=== PATIENT | female | born 1960 | race Caucasian/White ===

== ENCOUNTER 2018-08-23 20:04 | Emergency (ER) | payer MEDICAID ==
[~2018-08-23] VITALS: Ht 167.6 cm; Wt 69.9 kg
[2018-08-23] MEDS ORDERED: SODIUM CHLORIDE 0.9% 1,000 ML IV ONE ×2 (20:13)
[2018-08-23] MEDS ORDERED: TAMSULOSIN HYDROCHLORIDE 0.4 MG CAP PO ONE (20:15)
[2018-08-23] MEDS ORDERED: KETOROLAC TROMETH 30 MG/ML 1ML VIAL IV ONE (20:15)
[2018-08-23 21:18] LABS: Urine Bacteria NONE SEEN /hpf (None Seen); Urine Blood TRACE /uL (Negative); Urine Mucus FEW (None Seen); Urine Specific Gravity 1.008 (1.001-1.035); Urine WBC <1 /hpf (0 - 5)
[2018-08-23 21:38] LABS: Basophils # (auto) 0.1 uL; Basophils % (auto) 1.3 % (0.0-2.0); Eosinophils # (auto) 0.2 uL; Eosinophils % (auto) 2.8 % (0.0-7.0); Hematocrit 45.8 % (36.0-46.0); Hemoglobin 15.3 g/dL (12.2-16.2); Lymphocytes # (auto) 2.4 uL; Lymphocytes % (auto) 33.6 % (10.0-50.0); Mean Corpuscular Hemoglobin 28.8 pg (28.0-32.0); Mean Corpuscular Hgb Conc. 33.3 g/dL (32.0-36.0); Mean Corpuscular Volume 86.2 fL (80.0-100.0); Monocytes # (auto) 0.6 uL; Monocytes % (auto) 8.2 % (0.0-12.0); Neutrophils # (auto) 3.9 uL; Neutrophils % (auto) 54.1 % (37.0-80.0); Platelet Count (auto) 282 10^3/uL (140-450); Red Blood Cells 5.31 10^6/uL (4.0-5.20); Red Cell Distribution Width 13.4 % (11.8-14.3); White Blood Cell 7.2 10^3/uL (4.4-10.8)
[2018-08-23 21:51] LABS: Albumin 3.9 g/dL (3.4-5.0); BUN/Creatinine Ratio 18.1; Calcium 9.1 mg/dL (8.5-10.1); Potassium 4.1 mmol/L (3.5-5.1)
[2018-08-23 21:53] LABS: Bilirubin, Total 0.4 mg/dL (0.2-1.0); Total Protein 7.5 g/dL (6.4-8.2)
[2018-08-23 22:27] VITALS: BP 135/49
== END 2018-08-23 23:42 | disposition home or self-care (01) ==
LOC: EDBD 20:04 → ER 20:10
DX: N20.0 Calculus of kidney (principal); F17.210 Nicotine dependence, cigarettes, uncomplicated; F12.90 Cannabis use, unspecified, uncomplicated; Z90.710 Acquired absence of both cervix and uterus
CPT/HCPCS: 36415; 74176; 80053; 81001; 85025; 96374; 99284; J1885; J7030

== ENCOUNTER 2020-03-30 08:05 | Emergency (ER) | payer MEDICAID ==
[~2020-03-30] VITALS: Ht 160 cm; Wt 64.9 kg
[2020-03-30 08:30] VITALS: BP 132/90
== END 2020-03-30 09:11 | disposition home or self-care (01) ==
LOC: ER 08:05
DX: R04.0 Epistaxis (principal); F17.210 Nicotine dependence, cigarettes, uncomplicated; F12.10 Cannabis abuse, uncomplicated; Z90.710 Acquired absence of both cervix and uterus; Z88.6 Allergy status to analgesic agent

== ENCOUNTER 2022-04-02 13:44 | Emergency (ER) | payer MEDICAID ==
[~2022-04-02] VITALS: Ht 165.1 cm; Wt 68.0 kg
[2022-04-02 13:56] VITALS: BP 126/86
[2022-04-02] MEDS ORDERED: SODIUM CHLORIDE 0.9% 1,000 ML IVB ONE (16:45)
[2022-04-02 17:15] LABS: Basophils # (auto) 0 10 ^3/uL (0-0.2); Basophils % (auto) 0.6 % (0.0-2.0); Eosinophils # (auto) 0 10 ^3/uL (0-0.8); Eosinophils % (auto) 0.1 % (0.0-7.0); Hematocrit 45.2 % (36.0-46.0); Hemoglobin 14.8 g/dL (12.2-16.2); Lymphocytes % (auto) 12.6 % (10.0-50.0); Mean Corpuscular Hemoglobin 28.4 pg (28.0-32.0); Mean Corpuscular Hgb Conc. 32.9 g/dL (32.0-36.0); Mean Corpuscular Volume 86.2 fL (80.0-100.0); Monocytes # (auto) 0.3 10 ^3/uL (0-1.3); Monocytes % (auto) 3.3 % (0.0-12.0); Neutrophils # (auto) 6.4 10 ^3/uL (1.6-8.6); Neutrophils % (auto) 83.4 % (37.0-80.0); Red Blood Cells 5.24 10^6/uL (4.0-5.20); Red Cell Distribution Width 13.7 % (11.8-14.3); White Blood Cell 7.7 10^3/uL (4.4-10.8)
[2022-04-02 17:41] LABS: Albumin 3.7 g/dL (3.4-5.0); Calcium 9.6 mg/dL (8.5-10.1); Magnesium 2.4 mg/dL (1.6-2.6); Potassium 4.2 mmol/L (3.5-5.1)
[2022-04-02 17:44] LABS: BUN/Creatinine Ratio 22.3; Bilirubin, Total 0.6 mg/dL (0.2-1.0); Total Protein 8.1 g/dL (6.4-8.2)
== END 2022-04-03 01:21 | disposition left against medical advice (07) ==
LOC: ER 13:44 → EDBD 13:44 → ER 04-03 01:21
DX: R53.1 Weakness (principal); E86.0 Dehydration; N39.0 Urinary tract infection, site not specified; J44.9 Chronic obstructive pulmonary disease, unspecified; F17.210 Nicotine dependence, cigarettes, uncomplicated; F12.90 Cannabis use, unspecified, uncomplicated; Z88.2 Allergy status to sulfonamides; Z88.5 Allergy status to narcotic agent; Z87.442 Personal history of urinary calculi; Z90.710 Acquired absence of both cervix and uterus; Z98.890 Other specified postprocedural states
CPT/HCPCS: 36415; 80053; 83690; 83735; 85025

== ENCOUNTER → 2022-04-26 | Outpatient (CLI) | payer MEDICAID | END | disposition home or self-care (01) | LOC: LAB 09:46 | PROVIDERS: ATTEND Internal Medicine Pulmonary Disease | DX: Z01.812 Encounter for preprocedural laboratory examination (principal); Z20.822 Contact with and (suspected) exposure to COVID-19 | CPT/HCPCS: 36415; 87426 ==

== ENCOUNTER → 2022-05-04 | Outpatient (CLI) | payer MEDICAID | END | disposition home or self-care (01) | LOC: LAB 12:49 | PROVIDERS: ATTEND Internal Medicine Pulmonary Disease | DX: Z01.812 Encounter for preprocedural laboratory examination (principal); Z20.822 Contact with and (suspected) exposure to COVID-19 | CPT/HCPCS: 36415; 87426 ==

== ENCOUNTER → 2022-05-05 | Outpatient (CLI) | payer MEDICAID ==
[~2022-05-05] MED LIST: ALBUTEROL MEDNEB 2.5 mg/3ml NEB ONE
== END | disposition home or self-care (01) ==
LOC: RT 10:36
PROVIDERS: ATTEND Internal Medicine Pulmonary Disease
DX: J44.9 Chronic obstructive pulmonary disease, unspecified (principal)
CPT/HCPCS: 94060; 94727; 94729

== ENCOUNTER → 2022-09-07 | Outpatient (CLI) | payer MEDICAID ==
[2022-09-07 13:58] LABS: Basophils # (auto) 0.1 10 ^3/uL (0-0.2); Basophils % (auto) 1.1 % (0.0-2.0); Eosinophils # (auto) 0.3 10 ^3/uL (0-0.8); Eosinophils % (auto) 3.1 % (0.0-7.0); Hematocrit 45.3 % (36.0-46.0); Hemoglobin 15.2 g/dL (12.2-16.2); Lymphocytes # (auto) 2.4 10 ^3/uL (0.4-5.4); Mean Corpuscular Hgb Conc. 33.6 g/dL (32.0-36.0); Mean Corpuscular Volume 86.1 fL (80.0-100.0); Monocytes # (auto) 0.8 10 ^3/uL (0-1.3); Monocytes % (auto) 8.1 % (0.0-12.0); Neutrophils # (auto) 6.6 10 ^3/uL (1.6-8.6); Neutrophils % (auto) 64.7 % (37.0-80.0); Nucleated Red Blood Cells % 0.2 %; Red Blood Cells 5.26 10^6/uL (4.0-5.20); Red Cell Distribution Width 13.2 % (11.8-14.3); White Blood Cell 10.3 10^3/uL (4.4-10.8)
== END | disposition home or self-care (01) ==
LOC: LAB 13:37
PROVIDERS: ATTEND Internal Medicine Pulmonary Disease
DX: R91.8 Other nonspecific abnormal finding of lung field (principal); J44.9 Chronic obstructive pulmonary disease, unspecified
CPT/HCPCS: 36415; 85025

== ENCOUNTER 2022-10-05 20:15 | Inpatient (IN) | payer MEDICAID ==
[~2022-10-05] VITALS: Ht 165.1 cm; Wt 70.4 kg
[2022-10-05] MEDS ORDERED: ALBUTEROL SULF 2.5 MG/0.5ML(0.5%) NEB SOLN NEB ONE ×2 (20:30→20:50)
[2022-10-05] MEDS ORDERED: methylPREDNISolone SOD SUCC 40 MG/ML VL IV ONE (20:30)
[2022-10-05] MEDS ORDERED: IPRATROPIUM BROM 0.5 MG/2.5ML INH SOL NEB ONE (20:30)
[2022-10-05] MEDS ORDERED: ALBUTEROL SULF 2.5 MG/0.5ML(0.5%) NEB SOLN ONE (21:09)
[2022-10-05] MEDS ORDERED: MAGNESIUM SULFATE 1GM/100ML 100 ML IV ONE (21:15)
[2022-10-05 21:39] LABS: Basophils # (auto) 0.1 10 ^3/uL (0-0.2); Basophils % (auto) 0.9 % (0.0-2.0); Eosinophils # (auto) 0.5 10 ^3/uL (0-0.8); Eosinophils % (auto) 6.4 % (0.0-7.0); Hematocrit 40.3 % (36.0-46.0); Hemoglobin 13.6 g/dL (12.2-16.2); Lymphocytes # (auto) 2.4 10 ^3/uL (0.4-5.4); Lymphocytes % (auto) 28.1 % (10.0-50.0); Mean Corpuscular Hemoglobin 29.2 pg (28.0-32.0); Mean Corpuscular Hgb Conc. 33.8 g/dL (32.0-36.0); Mean Corpuscular Volume 86.2 fL (80.0-100.0); Monocytes # (auto) 0.6 10 ^3/uL (0-1.3); Monocytes % (auto) 7.2 % (0.0-12.0); Neutrophils # (auto) 4.8 10 ^3/uL (1.6-8.6); Neutrophils % (auto) 57.4 % (37.0-80.0); Nucleated Red Blood Cells % 0.1 %; Red Blood Cells 4.68 10^6/uL (4.0-5.20); Red Cell Distribution Width 13.1 % (11.8-14.3); White Blood Cell 8.4 10^3/uL (4.4-10.8)
[2022-10-05 21:55] LABS: Albumin 3.8 g/dL (3.4-5.0); Magnesium 2.4 mg/dL (1.6-2.6); Potassium 3.5 mmol/L (3.5-5.1)
[2022-10-05 21:58] LABS: BUN/Creatinine Ratio 17.5 (10.0-20.0); Bilirubin, Total 0.3 mg/dL (0.2-1.0); Total Protein 7.4 g/dL (6.4-8.2)
[2022-10-05 22:00] LABS: INR 0.92 (0.9-1.15); Partial Thromboplastin Time 27.8 sec (24.6-33.4)
[2022-10-05] MEDS ORDERED: NITROGLYCERIN 0.4 MG SL TAB SL PRN (22:15)
[2022-10-05] MEDS ORDERED: ACETAMINOPHEN 325 MG TAB PO PRN (22:15)
[2022-10-05] MEDS ORDERED: ONDANSETRON HCL 4 MG/2 ML VIAL IV PRN (22:15)
[2022-10-05] MEDS ORDERED: MORPHINE SULFATE INJ 2 MG/ml SYRG IV PRN (22:15)
[2022-10-05 22:23] VITALS: BP 151/100
[2022-10-06] MEDS: TEMAZEPAM 15 MG CAP PO PRN ×2 (02:33→22:43)
[2022-10-06 06:18] LABS: BUN/Creatinine Ratio 14.8 (10.0-20.0); Calcium 8.9 mg/dL (8.5-10.1); Potassium 3.6 mmol/L (3.5-5.1)
[2022-10-06] MEDS: ALBUTEROL SULF 2.5 MG/0.5ML(0.5%) NEB SOLN NEB PRN ×3 (09:43→19:05)
[2022-10-06] MEDS: IPRATROPIUM BROM 0.5 MG/2.5ML INH SOL NEB PRN ×3 (09:43→19:05)
[2022-10-06] MEDS: ENOXAPARIN SOD 40 MG/0.4 ML SYRINGE SC SCH (10:00)
[2022-10-06] MEDS: PANTOPRAZOLE 40 MG TAB PO SCH (10:00)
[2022-10-06 10:15] VITALS: BP 126/84
[2022-10-06] MEDS: methylPREDNISolone SOD SUCC 40 MG/ML VL IV SCH ×2 (10:30→22:43)
[2022-10-06 22:00] VITALS: BP 136/92
[2022-10-07] MEDS: IPRATROPIUM BROM 0.5 MG/2.5ML INH SOL NEB PRN ×3 (01:18→12:47)
[2022-10-07] MEDS: ALBUTEROL SULF 2.5 MG/0.5ML(0.5%) NEB SOLN NEB PRN ×3 (01:18→12:47)
[2022-10-07 05:00] VITALS: BP 132/89
[2022-10-07 08:56] VITALS: BP 132/91
[2022-10-07] MEDS ORDERED: IOHEXOL 350 MG/ML 100ML IJ ONE (09:03)
[2022-10-07] MEDS: methylPREDNISolone SOD SUCC 40 MG/ML VL IV SCH (09:08)
[2022-10-07] MEDS: PANTOPRAZOLE 40 MG TAB PO SCH (09:08)
[2022-10-07] MEDS: ENOXAPARIN SOD 40 MG/0.4 ML SYRINGE SC SCH (09:08)
[2022-10-07 13:00] VITALS: BP 130/79
[2022-10-07 16:19] VITALS: BP 130/79
== END 2022-10-07 16:43 | disposition home or self-care (01) | DRG 140 ==
LOC: EDBD 20:15 → ER 20:22 → TELE 22:05 → TELE-CENTR 10-06 10:09
PROVIDERS: ADMIT Nurse Practitioner; ATTEND Internal Medicine
DX: J44.1 Chronic obstructive pulmonary disease with (acute) exacerbation (principal); J96.21 Acute and chronic respiratory failure with hypoxia; F17.210 Nicotine dependence, cigarettes, uncomplicated; R79.89 Other specified abnormal findings of blood chemistry; Z88.5 Allergy status to narcotic agent; Z87.442 Personal history of urinary calculi; Z90.710 Acquired absence of both cervix and uterus; Z88.2 Allergy status to sulfonamides
CPT/HCPCS: 36415; 71045; 71275; 80048; 80053; 83735; 83880; 84484; 85025; 85379; 85610; 85730; 93005; 93970; 94640; 94644; 96365; G0378

== ENCOUNTER 2022-10-10 10:18 | Emergency (ER) | payer MEDICAID ==
[~2022-10-10] VITALS: Ht 165.1 cm; Wt 65.2 kg
[2022-10-10 10:22] VITALS: BP 128/93
[2022-10-10 10:55] LABS: Basophils # (auto) 0 10 ^3/uL (0-0.2); Basophils % (auto) 0.3 % (0.0-2.0); Eosinophils # (auto) 0.7 10 ^3/uL (0-0.8); Eosinophils % (auto) 5.9 % (0.0-7.0); Hematocrit 50.2 % (36.0-46.0); Hemoglobin 16.6 g/dL (12.2-16.2); Lymphocytes # (auto) 2.9 10 ^3/uL (0.4-5.4); Lymphocytes % (auto) 26.1 % (10.0-50.0); Mean Corpuscular Hemoglobin 28.6 pg (28.0-32.0); Mean Corpuscular Volume 86.6 fL (80.0-100.0); Monocytes # (auto) 0.9 10 ^3/uL (0-1.3); Monocytes % (auto) 7.8 % (0.0-12.0); Neutrophils # (auto) 6.7 10 ^3/uL (1.6-8.6); Neutrophils % (auto) 59.9 % (37.0-80.0); Nucleated Red Blood Cells % 0.3 %; Red Blood Cells 5.79 10^6/uL (4.0-5.20); Red Cell Distribution Width 13.4 % (11.8-14.3); White Blood Cell 11.1 10^3/uL (4.4-10.8)
[2022-10-10] MEDS ORDERED: LEVO500T91 PO (12:19)
[2022-10-10] MEDS ORDERED: IOHEXOL 350 MG/ML 100ML IJ ONE (12:24)
[2022-10-10] MEDS ORDERED: IPRATROPIUM BROM 0.5 MG/2.5ML INH SOL NEB ONE (12:30)
[2022-10-10] MEDS ORDERED: methylPREDNISolone SOD SUCC 40 MG/ML VL IM ONE (12:30)
[2022-10-10] MEDS ORDERED: cefTRIAXone SOD 1,000 MG VL IM ONE (12:30)
[2022-10-10] MEDS ORDERED: ALBUTEROL SULF 2.5 MG/0.5ML(0.5%) NEB SOLN NEB ONE (12:30)
[2022-10-10 12:41] LABS: Potassium 3.9 mmol/L (3.5-5.1)
[2022-10-10 12:47] LABS: BUN/Creatinine Ratio 17.4 (10.0-20.0); Bilirubin, Total 0.4 mg/dL (0.2-1.0); Calcium 8.9 mg/dL (8.5-10.1); Total Protein 7.5 g/dL (6.4-8.2)
== END 2022-10-10 14:47 | disposition left against medical advice (07) ==
LOC: ER 10:18
DX: J44.1 Chronic obstructive pulmonary disease with (acute) exacerbation (principal); E86.0 Dehydration; F17.210 Nicotine dependence, cigarettes, uncomplicated; F15.90 Other stimulant use, unspecified, uncomplicated; Z87.442 Personal history of urinary calculi; Z90.710 Acquired absence of both cervix and uterus
CPT/HCPCS: 36415; 71045; 80053; 84484; 85025; 93005; 99285; Q9967

== ENCOUNTER 2025-01-05 05:41 | Emergency (ER) | payer OTHER, MEDICAID ==
[~2025-01-05] VITALS: Ht 152.4 cm; Wt 62.4 kg
[~2025-01-05 05:41] MED LIST changes: +ALBU1TAB2 PO; -ALBUTEROL MEDNEB 2.5 mg/3ml NEB ONE; +AZIT500T66 PO; +FLUT1INH28 IN; +LEVO500T91 PO; +METH4PAK PO
[2025-01-05 05:43] VITALS: TEMP 97.7
--- NOTE | 2025-01-05 07:29 | ED.PDOC ---
SOB-HPI HPI Comments A 64 YEAR OLD FEMALE PRESENTS TO THE ED WITH COMPLAINT OF COUGH AND CHEST TIGHTNESS. PATIENT STATES SHE HAS A HISTORY OF COPD AND HAS BEEN EXPERIENCING A COUGH AND CHEST TIGHTNESS THAT COMES AND GOES FOR THE PAST 2 WEEKS. PATIENT REPORTS SHE HAS AN INHALER AND A NEBULIZER MACHINE, BUT NOTES SHE HAS BEEN HOMELESS FOR THE PAST 2 WEEKS AND HAS NOT BEEN ABLE TO USE HER NEBULIZER MACHINE A RESULT. PATIENT DENIES FEVER, CHILLS, SHORTNESS OF BREATH, CHEST PAIN, ABDOMINAL PAIN, NAUSEA, VOMITING, HEADACHE, OR OTHER COMPLAINTS. NO OTHER SYMPTOMS OR MODIFYING FACTORS AT THIS TIME. PATIENT IS ALERT, ORIENTED X 4, AND HAS STEADY GAIT. Chief Complaint: Shortness of Breath Time Seen by MD: 06:27 Reviewed notes: Nurses Notes, Medications, Allergies Information Source: Patient Mode of Arrival: Ambulatory Severity: Moderate Timing: Weeks Duration: Intermittent Context: Spontaneous Onset PE Risk Factors: None History of: COPD Prehospital treatment: None Modifying Factors: Nothing Associated Signs and Symptoms: Wheeze, Cough If cough with SOB: Non-Productive Past Medical History PAST MEDICAL HISTORY: COPD, Kidney Stones Surgical History: BTL, Hysterectomy SENIOR SALES ASSISTANT History: No Pertinent SENIOR SALES ASSISTANT History Family History Family History: Reviewed,noncontributory to illness, Family hx of Cancer Social History Smoker: Quit Less Than 1 Year Alcohol: Denies ETOH Use Drugs: Marijuana Lives In: Home Constitutional: denies: chills, diaphoresis, fatigue, fever, malaise, sweats, weakness, others EENTM: denies: blurred vision, double vision, ear bleeding, ear discharge, ear drainage, ear pain, ear ringing, eye pain, eye redness, hearing loss, mouth pain, mouth swelling, nasal discharge, nose bleeding, nose congestion, nose pain, photophobia, tearing, throat pain, throat swelling, voice changes, others Respiratory: reports: shortness of breath, wheezing, others (CHEST TIGHTNESS); denies: cough, hemoptysis, orthopnea, SOB at rest, SOB with excertion, stridor Cardiovascular: denies: chest pain, dizzy spells, diaphoresis, Dyspnea on exertion, edema, irregular heart beat, left arm pain, lightheadedness, palpitations, PND, syncope, others Gastrointestinal: denies: abdomen distended, abdominal pain, blood streaked bowels, constipated, diarrhea, dysphagia, difficulty swallowing, hematemesis, melena, nausea, poor appetite, poor fluid intake, rectal bleeding, rectal pain, vomiting, others Genitourinary: denies: abnormal vagina bleeding, burning, dyspareunia, dysuria, flank pain, frequency, hematuria, incontinence, pain, , vagina discharge, urgency, others Neurological: denies: dizziness, fainting, headache, left sided numbness, left sided weakness, numbness, paresthesia, pre-existing deficit, right sided numbness, right sided weakness, seizure, speech problems, tingling, tremors, wea kness, others Musculoskeletal: denies: back pain, gout, joint pain, joint swelling, muscle pain, muscle stiffness, neck pain, others Integumetry: denies: bruises, change in color, change in hair/nails, dryness, l aceration, lesions, lumps, rash, wounds, others Allergic/Immunocompromised: denies: Difficulty Healing, Frequent Infections, Hives, Itching, others Hematologic/Lymphatic: denies: anemia, blood clots, easy bleeding, easy bruising, swollen glands, others Endocrine: denies: excessive hunger, excessive sweating, excessive thirst, excessive urination, flushing, intolerance to cold, intolerance to heat, unexplained weight gain, unexplained weight loss, others Psychiatric: denies: anxiety, bipolar disorder, depression, hopeless, panic disorder, schizophrenia, sleepless, suicidal, others All Other Systems: Reviewed and Negative Physical Exam General Appearance: No Apparent Distress, Normal HEENT: Normal ENT Inspection, PERRL/EOMI, Pharynx Normal, TMs Normal Neck: Full Range of Motion, Non-Tender, Normal, Normal Inspection Respiratory: Chest Non-Tender, Expiration, No Accessory Muscle Use, No Respiratory Distress, Rhonchi, Wheezing (MILD ) Cardiovascular: No Edema, No JVD, No Murmur, No Gallop, Normal Peripheral Pulses, Regular Rate/Rhythm Breast Exam: Deferred Gastrointestinal: No Organomegaly, Non Tender, No Pulsatile Mass, Normal Bowel Sounds, Soft Genitalia: Deferred Pelvic: Deferred Rectal: Deferred Extremities: No calf tenderness, Normal capillary refill, Normal inspection, Normal range of motion, Non-tender, No pedal edema Musculoskeletal : Apperance: Normal Neurologic: Alert, communications project manager II-XII nml as Tested, No Motor Deficits, Normal Affect, Normal Mood, No Sensory Deficits Cerebellar Function: Normal Reflexes: Normal Skin: Dry, Normal Color, Warm Peripheral Pulses: 2+ carotid (R), 2+ carotid (L) Lymphatic: No Adenopathy Was a procedure done? Was a procedure done?: No Differential Dx Differential Diagnosis: Bronchitis, COPD, Pneumonia, Sinusitis, Allergic Rhinitis, Otitis Media, Pharyngitis, URI X-Ray, Labs, Meds, VS Vital Signs Date Time Temp Pulse Resp B/P (MAP) Pulse Ox O2 Delivery O2 Flow Rate FiO2 01/05/25 08:01 18 96 Room Air* 0 21 01/05/25 05:43 97.7 97 18 138/81 97.7 Current Medications Medications (Trade) Dose Ordered Sig/Lucius Route Start Time Stop Time Status Last Admin Albuterol (Ventolin Medneb) 2.5 mg ONCE ONCE NEB 01/05/25 07:30 01/05/25 07:31 DC 01/05/25 08:01 Ipratropium Mears (Atrovent Medneb) 0.5 mg ONCE ONCE NEB 01/05/25 07:30 01/05/25 07:31 DC 01/05/25 08:01 Methylprednisolone Sodium Succinate (Solu Medrol) 125 mg ONCE ONCE IM 01/05/25 07:30 01/05/25 07:31 DC 01/05/25 07:43 CHEST RADIOGRAPH Indication: SOB, HX OF COPD Technique: Single frontal view of the chest was obtained COMPARISON: XY CHEST PORTABLE on DOS: 10/26/22, XY CHEST PORTABLE on DOS: 10/10/22, CT CT ANGIO CHEST CONTRAST on DOS: 10/07/22, XY CHEST PORTABLE on DOS: 10/05/22 FINDINGS: Lines and Tubes: None Lungs: Mild congestion Pleura: No effusion. No pneumothorax. Cardiomediastinal contours: Unremarkable Bones: Unremarkable IMPRESSION: Increased interstital prominence. This may represent pulmonary vascular congestion and/or viral pneumonia. Clinical correlation advised. ATED BY: AV BARKER MD DICTATED DATE/TIME: 01/05/25745 SIGNED BY: AV BARKER MD SIGNED DATE/TIME: 01/05/25745 CC: X-Ray, Labs, Meds, VS Comment EXTERNAL MEDICAL RECORDS REVIEWED: [NONE] INDEPENDENT HISTORIANS: [NONE] SOCIAL DETERMINANTS OF HEALTH: [NONE] LABS ORDERED: NONE REVIEWED AND INTERPRETED RESULTS: NONE IMAGING ORDERED: XR CHEST TREATMENTS ORDERED: DUONEB 3 MG INHL, SOLU-MEDROL 125MG IM PROCEDURES PERFORMED: NONE CRITICAL CARE TIME: NONE I HAVE DISCUSSED THE PATIENT WITH THE ATTENDING PHYSICIAN DR. MEI AND HE AGREES WITH THE PATIENT'S PLAN OF CARE AND DISPOSITION. BASED ON HISTORY OF PRESENT ILLNESS, AND PHYSICAL EXAM, PATIENT WILL BE DISCHARGED HOME. DISCUSSED PLAN FOR DISCHARGE HOME WITH RX [LEVAQUIN 500 MG AND PREDNISONE]. MEDICATION WARNINGS GIVEN. SHARED DECISION MAKING: PATIENT INSTRUCTED TO FOLLOW UP WITH PRIMARY CARE PROVIDER IN 1-2 DAYS FOR RE-EVALUATION OF SYMPTOMS. PATIENT VERBALIZES UNDERSTANDING TO RETURN TO ED FOR NEW OR WORSENING SYMPTOMS OR IF FOLLOW UP WITH PCP CANNOT BE OBTAINED. PATIENT FEELS COMFORTABLE GOING HOME AT THIS TIME. ALL QUESTIONS ADDRESSED AT TIME OF DISCHARGE. Images Reviewed?: Images reviewed and evaluated by me Time of 1ST Reevaluation: 08:30 Reevaluation 1ST: Improved Patient Education/Counseling: Diagnosis, Treatment, Need For Follow Up Family Education/Counseling: Diagnosis, Treatment, Need For Follow Up Medical Screening: No EMC Exist At This Time SEPSIS Sepsis Screen Date sepsis recognized/suspect: Jan 05, 2025 Time Sepsis recognized/suspect: 0551 Recent Procedure: No On Antibiotic Therapy: No Respiratory Rate >20: No Heart Rate >90: No Temp<36 C (96.8 F) or >38.3 C: No SBP <90 or MAP <65 mmHG: No New Acute Mental Status Change: No Is the patient on CPAP, BIPAP,: No Physician Orders Chest Portable (01/05/25 06:29) Vital Signs Date Time Temp Pulse Resp B/P (MAP) Pulse Ox O2 Delivery O2 Flow Rate FiO2 01/05/25 08:01 18 96 Room Air* 0 21 01/05/25 05:43 97.7 97 18 138/81 97.7 Medications Medications Dose Ordered Sig/Lucius Route Start Time Stop Time Status Last Admin Dose Admin Albuterol 2.5 mg ONCE ONCE NEB 01/05/25 07:30 01/05/25 07:31 DC 01/05/25 08:01 Ipratropium Mears 0.5 mg ONCE ONCE NEB 01/05/25 07:30 01/05/25 07:31 DC 01/05/25 08:01 Methylprednisolone Sodium Succinate 125 mg ONCE ONCE IM 01/05/25 07:30 01/05/25 07:31 DC 01/05/25 07:43 Departure 1 Departure Time of Disposition: 08:30 Impression: Primary Impression: Acute bronchitis with COPD Disposition: 01 HOME / SELF CARE / HOMELESS Condition: Stable Additional Instructions: FOLLOW-UP WITH PCP IN 1 TO 2 DAYS. TAKE MEDICATIONS PRESCRIBED. RETURN TO ED FOR ANY NEW OR WORSENING SYMPTOMS. e-Prescriptions Methylprednisolone (Medrol Dosepak) 4 Mg Doug 4 MG PO UD, #21 TAB UAD Prov: JACOB FLORES 01/05/25 Levofloxacin Hemihydrate (LEVOFLOXACIN) 500 Mg Tab 500 MG PO DAILY for 10 Days, #10 MG Prov: JACOB FLORES 01/05/25 Discharged With: Self Critical Care Note Critical Care Time?: No Stability Stability form required: No Heart Score Heart Score: Heart Score Response (Comments) Value History N/A 0 EKG N/A 0 Age N/A 0 Risk Factors N/A 0 Troponin N/A 0 Total 0 I personally scribed for JACOB FLORES ([email or web address]) on 01/05/25 at 07:29. Electronically submitted by Marvin Bergman ([employer]). I personally scribed for JACOB FLORES ([email or web address]) on 01/05/25 at 07:57. Electronically submitted by Marvin Bergman ([employer]). I personally scribed for JACOB FLORES ([email or web address]) on 01/05/25 at 07:59. Electronically submitted by Marvin Bergman ([employer]). JACOB FLORES Jan 05, 2025 07:29
[2025-01-05] MEDS: methylPREDNISolone SOD SUCC 125 MG/2 ML VL IM ONE (07:43)
--- NOTE | 2025-01-05 07:48 | DVH ---
CHEST RADIOGRAPH Indication: SOB, HX OF COPD Technique: Single frontal view of the chest was obtained COMPARISON: XY CHEST PORTABLE on DOS: 10/26/22, XY CHEST PORTABLE on DOS: 10/10/22, CT CT ANGIO CHEST C ONTRAST on DOS: 10/07/22, XY CHEST PORTABLE on DOS: 10/05/22 FINDINGS: Lines and Tubes: None Lungs: Mild congestion Pleura: No effusion. No pneumothorax. Cardiomediastinal contours: Unremarkable Bones: Unremarkable IMPRESSION: Increased interstital prominence. This may represent pulmonary vascular congestion and/or viral pneum onia. Clinical correlation advised.
[2025-01-05] MEDS: ALBUTEROL SULF 2.5 MG/0.5ML(0.5%) NEB SOLN NEB ONE (08:01)
[2025-01-05] MEDS: IPRATROPIUM BROM 0.5 MG/2.5ML INH SOL NEB ONE (08:01)
[2025-01-05 08:11] VITALS: BP 138/81; PULSE 97; RESP 18; O2SAT 96
[2025-01-05] MEDS ORDERED: LEVO500T91 PO (08:11)
[2025-01-05] MEDS ORDERED: METH4PAK PO (08:11)
== END 2025-01-05 08:14 | disposition home or self-care (01) ==
LOC: ER 05:41
DX: J44.0 Chronic obstructive pulmonary disease with (acute) lower respiratory infection (principal); J20.9 Acute bronchitis, unspecified; Z90.710 Acquired absence of both cervix and uterus
CPT/HCPCS: 71045; 94640; 96372; 99283; J2919

== ENCOUNTER 2025-04-13 04:21 | Inpatient (IN) | payer OTHER, MEDICAID ==
[~2025-04-13] VITALS: Ht 167.6 cm; Wt 64.0 kg
--- NOTE | 2025-04-13 05:01 | ED.PDOC ---
GI ASSESSMENT HPI Comments 65-year-old female who came to ER for abdominal pain. Patient states about 12 midnight, she started having diffuse cramping abdominal pain, associated multiple bouts of nausea, vomiting and diarrhea. States she feels very weak and dehydrated. Chief Complaint: Abdominal Pain Time Seen by MD: 05:01 Reviewed Notes: Nurses Notes, Glue Machine Operator Notes Allergies: Coded Allergies: Codeine (Verified Allergy, Unknown, 09/14/18) Ketorolac Tromethamine (Verified Allergy, Unknown, 10/10/22) Morphine (Verified Allergy, Unknown, 09/14/18) Sulfa Antibiotics (Verified Allergy, Unknown, 04/02/22) Home Meds Active Scripts Methylprednisolone (Medrol Dosepak) 4 Mg Doug, 4 MG PO UD, #21 TAB UAD Prov:JACOB FLORES 01/05/25 Levofloxacin Hemihydrate (LEVOFLOXACIN) 500 Mg Tab, 500 MG PO DAILY for 10 Days, #10 MG Prov:JACOB FLORES 01/05/25 Azithromycin (Azithromycin) 500 Mg Tab, 1 TAB PO DAILY, #7 TAB Prov:IRVING LANE MD 10/30/22 Reported Medications Fluticasone Furoate-Vilanterol (Fluticasone Furoate/Vilan 200-25 Mcg/Act) 1 Inh Inh, 1 INH IN, INHALER 10/29/22 Albuterol Sulfate (Albuterol) 4 Mg Tab, 4 MG PO, TAB 10/27/22 Information Source: Patient Mode of Arrival: EMS Past Medical History PAST MEDICAL HISTORY: COPD, Kidney Stones Surgical History: BTL, Hysterectomy CLOTH CUTTING MACHINE OPERATOR History: No Pertinent CLOTH CUTTING MACHINE OPERATOR History Family History Family History: Reviewed,noncontributory to illness, Family hx of Cancer Social History Smoker: Quit Less Than 1 Year Alcohol: Denies ETOH Use Drugs: Marijuana Lives In: Home Constitutional: reports: weakness; denies: chills, diaphoresis, fatigue, fever, malaise, sweats, others EENTM: denies: blurred vision, double vision, ear bleeding, ear discharge, ear drainage, ear pain, ear ringing, eye pain, eye redness, hearing loss, mouth pain, mouth swelling, nasal discharge, nose bleeding, nose congestion, nose pa in, photophobia, tearing, throat pain, throat swelling, voice changes, others Respiratory: denies: cough, hemoptysis, orthopnea, SOB at rest, shortness of breath, SOB with excertion, stridor, wheezing, others Cardiovascular: denies: chest pain, dizzy spells, diaphoresis, Dyspnea on exertion, edema, irregular heart beat, left arm pain, lightheadedness, palpitations, PND, syncope, others Gastrointestinal: reports: abdominal pain, diarrhea, nausea, vomiting; denies: abdomen distended, blood streaked bowels, constipated, dysphagia, difficulty swallowing, hematemesis, melena, poor appetite, poor fluid intake, rectal bleeding, rectal pain, others Genitourinary: denies: abnormal vagina bleeding, burning, dyspareunia, dysuria, flank pain, frequency, hematuria, incontinence, pain, , vagina discharge, urgency, others Neurological: denies: dizziness, fainting, headache, left sided numbness, left sided weakness, numbness, paresthesia, pre-existing deficit, right sided numbness, right sided weakness, seizure, speech problems, tingling, tremors, weakness, others Musculoskeletal: denies: back pain, gout, joint pain, joint swelling, muscle pain, muscle stiffness, neck pain, others Integumetry: denies: bruises, change in color, change in hair/nails, dryness, laceration, lesions, lumps, rash, wounds, others Allergic/Immunocompromised: denies: Difficulty Healing, Frequent Infections, Hives, Itching, others Hematologic/Lymphatic: denies: anemia, blood clots, easy bleeding, easy bruising, swollen glands, others Endocrine: denies: excessive hunger, excessive sweating, excessive thirst, excessive urination, flushing, intolerance to cold, intolerance to heat, unexplained weight gain, unexplained weight loss, others Psychiatric: denies: anxiety, bipolar disorder, depression, hopeless, panic disorder, schizophrenia, sleepless, suicidal, others Physical Exam General Appearance: Moderate Distress, Normal HEENT: Normal ENT Inspection, Pharynx Normal, TMs Normal Neck: Full Range of Motion, Non-Tender, Normal, Normal Inspection Respiratory: Chest Non-Tender, Lungs Clear, No Accessory Muscle Use, No Respiratory Distress, Normal Breath Sounds Cardiovascular: No Edema, No JVD, No Murmur, No Gallop, Normal Peripheral Pulses, Regular Rate/Rhythm Breast Exam: Deferred Gastrointestinal: No Organomegaly, Non Tender, No Pulsatile Mass, Normal Bowel Sounds, Soft Genitalia: Deferred Pelvic: Deferred Rectal: Deferred Extremities: No calf tenderness, Normal capillary refill, Normal inspection, Normal range of motion, Non-tender, No pedal edema Musculoskeletal : Apperance: Normal Neurologic: Alert, deck mechanic II-XII nml as Tested, No Motor Deficits, Normal Affect, Normal Mood, No Sensory Deficits Cerebellar Function: NOT DONE Reflexes: NOT DONE Skin: Dry, Normal Color, Warm Peripheral Pulses: 3+ Radial (R), 3+ Radial (L) Lymphatic: No Adenopathy Was a procedure done? Was a procedure done?: No GI differential Dx Differential Diagnosis: Constipation, Diverticular disease, Esophagitis, Gastritis/PUD, Gastroenteritis, Dehydration, Electrolyte Imbalance, Food Poisoning X-Ray, Labs, Meds, VS Vital Signs Date Time Temp Pulse Resp B/P (MAP) Pulse Ox O2 Delivery O2 Flow Rate FiO2 04/13/25 06:54 85 18 105/82 04/13/25 04:21 97.9 101 18 130/79 98 97.9 Lab Test 04/13/25 05:09 Range/Units White Blood Count 12.8 H 4.4-10.8 10^3/uL Red Blood Count 5.63 H 4.0-5.20 10^6/uL Hemoglobin 16.5 H 12.2-16.2 g/dL Hematocrit 49.4 H 36.0-46.0 % Mean Corpuscular Volume 87.8 80.0-100.0 fL Mean Corpuscular Hemoglobin 29.2 28.0-32.0 pg Mean Corpuscular Hemoglobin Concent 33.3 32.0-36.0 g/dL Red Cell Distribution Width 13.8 11.8-14.3 % Platelet Count 326 140-450 10^3/uL Mean Platelet Volume 7.9 6.9-10.8 fL Neutrophils (%) (Auto) 90.9 H 37.0-80.0 % Lymphocytes (%) (Auto) 3.6 L 10.0-50.0 % Monocytes (%) (Auto) 3.7 0.0-12.0 % Eosinophils (%) (Auto) 1.3 0.0-7.0 % Basophils (%) (Auto) 0.5 0.0-2.0 % Neutrophils # (Auto) 11.6 H 1.6-8.6 10 ^3/uL Lymphocytes # (Auto) 0.5 0.4-5.4 10 ^3/uL Monocytes # (Auto) 0.5 0-1.3 10 ^3/uL Eosinophils # (Auto) 0.2 0-0.8 10 ^3/uL Basophils # (Auto) 0.1 0-0.2 10 ^3/uL Nucleated Red Blood Cells 0.0 % Sodium Level 142 136-145 mmol/L Potassium Level 4.2 3.5-5.1 mmol/L Chloride Level 104 98-107 mmol/L Carbon Dioxide Level 26 20-31 mmol/L Anion Gap 12 5-15 Blood Urea Nitrogen 21 9-23 mg/dL Creatinine 1.54 H 0.550-1.02 mg/dL Glomerular Filtration Rate Calc 37 >90 mL/min BUN/Creatinine Ratio 13.6 10.0-20.0 Serum Glucose 120 H 74-106 mg/dL Calcium Level 9.9 8.7-10.4 mg/dL Total Bilirubin 0.8 0.2-1.0 mg/dL Aspartate Amino Transferase (AST) 26 13-40 U/L Alanine Aminotransferase (ALT) 23 7-40 U/L Alkaline Phosphatase 102 46-116 U/L Total Protein 7.9 5.7-8.2 g/dL Albumin 5.0 H 3.2-4.8 g/dL Lipase 27 12-53 U/L Current Medications Medications (Trade) Dose Ordered Sig/Lucius Route Start Time Stop Time Status Last Admin Ondansetron HCl (Zofran) 4 mg ONCE ONCE IV 04/13/25 05:00 04/13/25 05:01 DC 04/13/25 06:55 Sodium Chloride 1,000 ml @ 1,000 mls/hr Q1H ONCE IVB 04/13/25 05:00 04/13/25 05:59 DC 04/13/25 06:55 Morphine Sulfate 4 mg ONCE ONCE IV 04/13/25 05:00 04/13/25 05:01 DC 04/13/25 06:54 Patient alert. Came in because of abdominal discomfort. Vitals stable. Answering questions. WBC elevated. Establish intravenous access. Was given fluids. Was given morphine. Was given Zofran. Explained to the patient. Continue monitoring. Time of 1ST Reevaluation: 04:59 Reevaluation 1ST: Unchanged Patient Education/Counseling: Diagnosis, Treatment Family Education/Counseling: No Family Present SEPSIS Sepsis Screen Physician Orders Urinalysis (04/13/25 04:48) Ct Ab Pel With Iv Con Only (04/13/25 04:48) Vital Signs Date Time Temp Pulse Resp B/P (MAP) Pulse Ox O2 Delivery O2 Flow Rate FiO2 04/13/25 06:54 85 18 105/82 04/13/25 04:21 97.9 101 18 130/79 98 97.9 Laboratory Tests Test 04/13/25 05:09 White Blood Count 12.8 10^3/uL (4.4-10.8) H Medications Medications Dose Ordered Sig/Lucius Route Start Time Stop Time Status Last Admin Dose Admin Morphine Sulfate 4 mg ONCE ONCE IV 04/13/25 05:00 04/13/25 05:01 DC 04/13/25 06:54 Ondansetron HCl 4 mg ONCE ONCE IV 04/13/25 05:00 04/13/25 05:01 DC 04/13/25 06:55 Sodium Chloride 1,000 ml @ 1,000 mls/hr Q1H ONCE IVB 04/13/25 05:00 04/13/25 05:59 DC 04/13/25 06:55 Departure 1 Departure Time of Disposition: 09:05 Impression: Primary Impression: Gastroenteritis Disposition: 09 ADMITTED INPATIENT Admit to: Med Surg Condition: Guarded Critical Care Note Critical Care Time?: No Stability Stability form required: No Heart Score Heart Score: Heart Score Response (Comments) Value History N/A 0 EKG N/A 0 Age N/A 0 Risk Factors N/A 0 Troponin N/A 0 Total 0 I personally scribed for MORGAN CRAWFORD MD ([email or web address]) on 04/13/25 at 05:01. Electronically submitted by Gilberto Henriquez ([email or web address]). MORGAN CRAWFORD MD Apr 13, 2025 05:01 JENNY MEI MD Apr 13, 2025 09:05
[2025-04-13 05:46] LABS: Hematocrit 49.4 % (36.0-46.0); Hemoglobin 16.5 g/dL (12.2-16.2); Mean Corpuscular Hemoglobin 29.2 pg (28.0-32.0); Mean Corpuscular Volume 87.8 fL (80.0-100.0); Nucleated Red Blood Cells % 0.0 %
[2025-04-13 05:54] LABS: Alanine Aminotransferase 23 U/L (7-40); Alkaline Phosphatase 102 U/L (46-116); Anion Gap 12 (5-15); BUN/Creatinine Ratio 13.6 (10.0-20.0); Blood Urea Nitrogen 21 mg/dL (9-23); Calcium 9.9 mg/dL (8.7-10.4); Carbon Dioxide 26 mmol/L (20-31); Chloride 104 mmol/L (98-107); Lipase 27 U/L (12-53); Potassium 4.2 mmol/L (3.5-5.1); Sodium 142 mmol/L (136-145); Total Protein 7.9 g/dL (5.7-8.2)
[2025-04-13 05:55] LABS: Bilirubin, Total 0.8 mg/dL (0.2-1.0)
[2025-04-13 05:58] LABS: Albumin 5.0 g/dL (3.2-4.8); Glucose 120 mg/dL (74-106)
[2025-04-13] MEDS: MORPHINE SULFATE 4 MG/ML SYR/VIAL IV ONE (06:54)
[2025-04-13] MEDS: ONDANSETRON HCL 4 MG/2 ML VIAL IV ONE (06:55)
[2025-04-13] MEDS: SODIUM CHLORIDE 0.9% 1,000 ML IVB ONE ×2 (06:55→10:35)
[2025-04-13] MEDS: IOHEXOL 300 MG/ML 100ML BOTTLE IJ ONE (07:53)
--- NOTE | 2025-04-13 08:37 | DVH ---
EXAM: CT CT AB PEL WITH IV CON ONLY History: abd pain COMPARISON: None TECHNIQUE: Multidetector spiral CT of the abdomen and pelvis was performed from lung bases to pubic symphysis. Intravenous contrast was administered during this examination. Portal venous imaging was obtained. Axial, coronal and sagittal multiplanar reformats were performed by the technologist on a separate workstation. Radiation Dose : 1. Abdomen/Pelvis: CTDIvol 11.9 mGy, DLP 635 mGy*cm. CONTRAST: Type of contrast: Omnipaque Contrast injected: 100 ml FINDINGS: Lung Bases: No acute or significant lung base finding. Normal heart size. No pleural or pericardial effusion. Moderate to large colonic stool burden. Liver: The liver is normal in size. No focal lesions. Normal hepatic vascular enhancement. Gallbladder and Biliary Tree: Unremarkable Spleen: Unremarkable Pancreas: The pancreas is normal in appearance without focal lesions or abnormal enhancement. Adrenal Glands: Unremarkable Kidneys: No hydronephrosis. Bladder: Unremarkable Bowel: The stomach is grossly normal in appearance. Mild wall thickening of a few loops of small bowel in the left hemiabdomen may reflect mild enteritis. The appendix is not visualized; however, no secondary findings of acute appendicitis identified. Ascites: Absent Lymphadenopathy: No mesenteric, retroperitoneal or periportal lymphadenopathy. Abdominal Wall and Mesentery: Unremarkable. Vasculature: The visualized abdominal aorta is normal in size and caliber. Abdominal and pelvic vessels demonstrate normal enhancement. Pelvic Organs: Unremarkable Musculoskeletal: No aggressive focal bony lesions, acute fractures or dislocation. IMPRESSION: 1. Mild wall thickening of a few loops of small bowel in the left hemiabdomen may reflect mild enteritis. 2. Moderate to large colonic stool burden. Radiation optimization: All CT scans at this facility use at least one of these dose optimization techniques: automated exposure control mA and/or kV adjustment per patient size (includes targeted exams where dose is matched to clinical indication) or iterative reconstruction.
[2025-04-13 09:35] LABS: Urine Protein, UAD TRACE (Negative)
[2025-04-13 09:44] VITALS: PULSE 87; RESP 14; O2SAT 94
[2025-04-13] MEDS: SODIUM CHLORIDE 0.9% 1,000 ML IV ONE (11:25)
[2025-04-13] MEDS: DICYCLOMINE HCL (10MG/ML) 2 ML AMPULE IM ONE (11:30)
[2025-04-13] MEDS ORDERED: HYDROmorphone HCL 2 MG/ML VL/or syr IV PRN ×4 (11:30→11:45)
[2025-04-13] MEDS ORDERED: NITROGLYCERIN 0.4 MG SL TAB SL PRN (11:30)
[2025-04-13] MEDS: SODIUM CHLORIDE 0.9% 1,000 ML IV SCH (11:30)
[2025-04-13] MEDS ORDERED: DOCUSATE SOD 100 MG CAP PO PRN (11:30)
[2025-04-13] MEDS: PANTOPRAZOLE 40 MG/10 ML VIAL INJ IV ONE (12:03)
--- NOTE | 2025-04-13 18:11 | DVHHP2 ---
History of Present Illness Reason for Visit: abd pAIN History of Present Illness 65-year-old female with past medical history significant for COPD, nephrolithiasis, and surgical history including tubal ligation, hysterectomy, shoulder surgery, and foot surgery, who presents with acute abdominal pain, nausea, and severe diarrhea. Symptoms began last night and have progressively worsened. Patient describes the abdominal pain as cramping in nature and reports profuse diarrhea, stating it has been so severe that she developed shaking and tremors, and she feels very dehydrated. She denies recent antibiotic use, chest pain, or shortness of breath. In the ED, patient received morphine, IV normal saline, and Zofran with partial symptom relief. Laboratory evaluation revealed leukocytosis (WBC 12.8), hemoglobin 16.5 / hematocrit 49.4 suggestive of hemoconcentration, creatinine 1.54, and urinalysis with bacteria. CT abdomen and pelvis demonstrated enteritis with associated constipation. Patient is a current smoker and declines nicotine patch. She will be admitted for IV hydration, infectious workup, symptom control, and further management. Past Medical History See HPI above Past Surgical History See HPI above Family History Reviewed, non-contributory to the management of this case. Past Social History Patient is smoker denies drug or alcohol use Review of Systems Constitutional: No: Fever, Chills, Sweats, Weakness, Malaise, Other Eyes: No: Pain, Vision change, Conjunctivae inflammation, Eyelid inflammation, Other, Redness ENT: No: Ear pain, Ear discharge, Nose pain, Nose discharge, Nose congestion, Mouth pain, Mouth swelling, Throat pain, Throat swelling, Other Respiratory: No: Cough, Dry, Shortness of breath, SOB with excertion, Wheezing, Hemoptysis, Pleuritic Pain, Sputum, Wheezing, Other Cardiovascular: No: Chest Pain, Palpitations, Orthopnea, Paroxysmal Noc. Dyspnea, Edema, Lt Headedness, Other Gastrointestinal: Nausea, Vomiting, Abdominal Pain; No: Diarrhea, Constipation, Melena, Hematochezia, Other Genitourinary: No Dysuria, No Frequency, No Incontinence, No Hematuria, No Retention, No Other Musculoskeletal: No: other, neck pain, shoulder pain, arm pain, back pain, hand pain, leg pain, foot pain Skin: No: Rash, Lesions, Jaundice, Bruising, Other Neurological: No: Weakness, Numbness, Incoordination, Change in speech, Confusion, Seizures, Other Allergies: Coded Allergies: Codeine (Verified Allergy, Unknown, 09/14/18) Ketorolac Tromethamine (Verified Allergy, Unknown, 10/10/22) Morphine (Verified Allergy, Unknown, 09/14/18) Sulfa Antibiotics (Verified Allergy, Unknown, 04/02/22) Medications Current Medications Medications Dose Ordered Sig/Lucius Route Start Time Stop Time Status Last Admin Dose Admin Ceftriaxone Sodium 50 ml @ 100 mls/hr DAILY@09 IV 04/14/25 09:00 Metronidazole 100 ml @ 100 mls/hr Q8HR IV 04/13/25 22:00 Dicyclomine HCl 20 mg QID PO 04/13/25 18:00 Pantoprazole Sodium 40 mg DAILY IV 04/14/25 10:00 Sodium Chloride 1,000 ml @ 70 mls/hr [id number] IV 04/13/25 11:30 Ondansetron HCl 4 mg Q4HP PRN IV 04/13/25 11:30 Docusate Sodium 100 mg BIDPRN PRN PO 04/13/25 11:30 Enoxaparin Sodium 40 mg DAILY SC 04/14/25 10:00 Nitroglycerin 0.4 mg Q5MINP PRN SL 04/13/25 11:30 Hydromorphone HCl 0.25 mg Q4HPRN PRN IV 04/13/25 11:45 Hydromorphone HCl 0.5 mg Q4HPRN PRN IV 04/13/25 11:45 Exam Vital Signs Vital Signs Date Time Temp Pulse Resp B/P (MAP) Pulse Ox O2 Delivery O2 Flow Rate FiO2 04/13/25 16:55 100.4 101 16 125/54 (77) 94 100.4 04/13/25 09:44 Nasal Cannula* 2 28 General Appearance: Alert, Oriented X3, Cooperative, No acute distress HEENT: Atraumatic, PERRLA, EOMI, Mucous membr. moist/pink Respiratory: Clear to auscultation, Normal air movement Cardiovascular: Regular rate, Normal S1, Normal S2, No murmurs Abdominal: Normal bowel sounds, Soft, No tenderness, No hepatospenomegaly, No masses Extremities: No clubbing, No cyanosis, No edema, Normal pulses, No tenderness/swelling Skin: No rashes, No breakdown, No significant lesion Neuro: Normal speech, Strength at 5/5 X4 ext, Normal tone, Sensation intact, Cranial nerves 3-12 NL Psych/Mental Status: Mental status NL, Mood NL Labs/Xrays CT scan abdomen pelvis shows enteritis and constipation I reviewed labs, imaging CT scan abdomen pelvis, EKG and all diagnostic studies on this patient from ED records and the medical chart Labs Test 04/13/25 09:16 04/13/25 05:09 Range/Units Urine Color Light-yellow Yellow Urine Clarity Hazy H Clear Urine pH 5.5 5.0-9.0 Urine Specific [place] 1.008 1.001-1.035 Urine Protein Trace H Negative Urine Ketones Negative Negative Urine Blood Negative Negative /uL Urine Nitrite Negative Negative Urine Bilirubin Negative Negative Urine Urobilinogen Normal Negative mg/dL Urine Leukocyte Esterase 1+ Negative /uL Urine RBC 15 0 - 4 /hpf Urine Microscopic WBC 38 H 0-5 /HPF Urine Squamous Epithelial Cells Few <5 /hpf Urine Bacteria Few H None Seen /hpf Urine Hyaline Casts Few 0 - 2 /lpf Urine Glucose Normal Normal mg/dL White Blood Count 12.8 H 4.4-10.8 10^3/uL Red Blood Count 5.63 H 4.0-5.20 10^6/uL Hemoglobin 16.5 H 12.2-16.2 g/dL Hematocrit 49.4 H 36.0-46.0 % Mean Corpuscular Volume 87.8 80.0-100.0 fL Mean Corpuscular Hemoglobin 29.2 28.0-32.0 pg Mean Corpuscular Hemoglobin Concent 33.3 32.0-36.0 g/dL Red Cell Distribution Width 13.8 11.8-14.3 % Platelet Count 326 140-450 10^3/uL Mean Platelet Volume 7.9 6.9-10.8 fL Neutrophils (%) (Auto) 90.9 H 37.0-80.0 % Lymphocytes (%) (Auto) 3.6 L 10.0-50.0 % Monocytes (%) (Auto) 3.7 0.0-12.0 % Eosinophils (%) (Auto) 1.3 0.0-7.0 % Basophils (%) (Auto) 0.5 0.0-2.0 % Neutrophils # (Auto) 11.6 H 1.6-8.6 10 ^3/uL Lymphocytes # (Auto) 0.5 0.4-5.4 10 ^3/uL Monocytes # (Auto) 0.5 0-1.3 10 ^3/uL Eosinophils # (Auto) 0.2 0-0.8 10 ^3/uL Basophils # (Auto) 0.1 0-0.2 10 ^3/uL Nucleated Red Blood Cells 0.0 % Sodium Level 142 136-145 mmol/L Potassium Level 4.2 3.5-5.1 mmol/L Chloride Level 104 98-107 mmol/L Carbon Dioxide Level 26 20-31 mmol/L Anion Gap 12 5-15 Blood Urea Nitrogen 21 9-23 mg/dL Creatinine 1.54 H 0.550-1.02 mg/dL Glomerular Filtration Rate Calc 37 >90 mL/min BUN/Creatinine Ratio 13.6 10.0-20.0 Serum Glucose 120 H 74-106 mg/dL Calcium Level 9.9 8.7-10.4 mg/dL Total Bilirubin 0.8 0.2-1.0 mg/dL Aspartate Amino Transferase (AST) 26 13-40 U/L Alanine Aminotransferase (ALT) 23 7-40 U/L Alkaline Phosphatase 102 46-116 U/L Total Protein 7.9 5.7-8.2 g/dL Albumin 5.0 H 3.2-4.8 g/dL Lipase 27 12-53 U/L SEPSIS Sepsis Screen Date sepsis recognized/suspect: Apr 13, 2025 Time Sepsis recognized/suspect: 420 Recent Procedure: No On Antibiotic Therapy: No Respiratory Rate >20: No Heart Rate >90: No Temp<36 C (96.8 F) or >38.3 C: No SBP <90 or MAP <65 mmHG: No New Acute Mental Status Change: No Is the patient on CPAP, BIPAP,: No Physician Orders Clostridium Difficile Toxin (04/13/25 11:21) Stool Bacterial Culture (04/13/25 11:21) Stool Wbc (04/13/25 11:21) Ceftriaxone 1gm/50ml (Rocephin) (04/14/25 09:00) Metronidazole 500mg/100ml (Flagyl 500mg/ (04/13/25 22:00) Dicyclomine Capsule (Bentyl Capsule) (04/13/25 18:00) Pantoprazole (Protonix) (04/14/25 10:00) Admit (04/13/25 11:21) Allergies (04/13/25 11:21) Code Status (04/13/25 11:21) Sodium Chloride 0.9% (04/13/25 11:30) Ondansetron Hcl (Zofran) (04/13/25 11:30) Docusate Sodium Capsule (Colace Capsule) (04/13/25 11:30) Enoxaparin Sodium (Lovenox) (04/14/25 10:00) Complete Blood Count (04/14/25 04:00) Comprehensive Metabolic Panel (04/14/25 04:00) Condition: Stable (04/13/25 11:21) Clear Liq Diet (04/13/25 Lunch) BRP (04/13/25 11:21) Sequential Compression Device (04/13/25 ) Nitroglycerin Sublingual (Ntrostat Subli (04/13/25 11:30) Stat Ekg For Chest Pain (04/13/25 11:21) Notify Md Of Changes From Base (04/13/25 11:21) Comp Field Case Manager For 24 Hours (04/13/25 11:21) Emergency Dysrhythmia Protocol (04/13/25 11:21) Rhythm Strips Once Every Shift (04/13/25 11:21) Oxygen By Nasal Cannula (04/13/25 11:21) Hydromorphone Injection (Dilaudid Inject (04/13/25 11:45) Hydromorphone Injection (Dilaudid Inject (04/13/25 11:45) Lactic Acid W/ Reflex Order (04/13/25 17:28) Vital Signs Date Time Temp Pulse Resp B/P (MAP) Pulse Ox O2 Delivery O2 Flow Rate FiO2 04/13/25 16:55 100.4 101 16 125/54 (77) 94 100.4 04/13/25 11:58 92 15 109/64 (79) 94 04/13/25 10:06 85 15 91/70 (77) 97 Medications Medications Dose Ordered Sig/Lucius Route Start Time Stop Time Status Last Admin Dose Admin Ceftriaxone Sodium 50 ml @ 100 mls/hr ONCE ONCE IV 04/13/25 10:15 04/13/25 10:44 DC 04/13/25 11:25 100 MLS/HR Metronidazole 100 ml @ 100 mls/hr ONCE ONCE IV 04/13/25 10:15 04/13/25 11:14 DC 04/13/25 11:45 100 MLS/HR Pantoprazole Sodium 40 mg ONCE ONCE IV 04/13/25 11:30 04/13/25 11:38 DC 04/13/25 12:03 40 MG Sodium Chloride 1,000 ml @ 150 mls/hr [id number] ONCE IV 04/13/25 10:15 04/13/25 16:54 DC 04/13/25 11:25 150 MLS/HR Sodium Chloride 1,000 ml @ 1,000 mls/hr Q1H ONCE IVB 04/13/25 10:15 04/13/25 11:14 DC 04/13/25 10:35 1,000 MLS/HR Assessment/Plan Assessment/Plan 65-year-old female admitted for acute enteritis with severe diarrhea and dehydration, associated leukocytosis, acute kidney injury, and inability to tolerate oral intake. Acute enteritis with severe diarrhea CT abdomen/pelvis consistent with enteritis Send stool studies including C. difficile, GI PCR panel Start IV antibiotics ceftriaxone and flagyl acute Antidiarrheal therapy as appropriate Dehydration IV normal saline hydration Monitor intake/output Trend renal function Acute kidney injury, likely prerenal Creatinine 1.54 on admission IV hydration Avoid nephrotoxic agents Daily BMP acute Leukocytosis Likely reactive/infectious Monitor WBC trend cont iv antibotics for now acute intractable Abdominal pain, cramping Pain control with low-dose opioids as needed diluadid Avoid NSAIDs ordered bentyl acute Constipation noted on imaging Bowel regimen once diarrhea improves can provided miralax acute Nausea and vomiting Zofran PRN chronic COPD (stable) Monitor respiratory status Continue home inhalers if needed Tobacco use disorder Patient declines nicotine patch Counseling provided chronic problems list COPD History of kidney stones Tobacco use Status post hysterectomy Status post tubal ligation Status post shoulder surgery Status post foot surgery FEN / PPx Fluids: IV normal saline Electrolytes: Monitor BMP daily Nutrition: Clear liquid diet, advance as tolerated DVT Prophylaxis: SCDs heparin GI Prophylaxis: protonix Disposition Admit to medicine service for management of acute enteritis, dehydration, AMERICA, and symptom control. Continue IV hydration, antibiotics, stool studies, ant iemetics, and pain control. Monitor renal function and clinical response. Plan discussed with: Patient My Orders Orders - HIGGINS,THANH M DNP Procedure Category Date Status Time Clostridium Difficile DELLA 04/13/25 Logged Toxin 11:21 Stool Bacterial DELLA 04/13/25 Logged Culture 11:21 Stool Wbc LAB 04/13/25 Logged 11:21 Ceftriaxone 1gm/50ml PHA 04/14/25 In Process (Rocephin) 09:00 Metronidazole PHA 04/13/25 In Process 500mg/100ml (Flagyl 22:00 Dicyclomine Capsule PHA 04/13/25 In Process (Bentyl Capsule) 18:00 Pantoprazole PHA 04/14/25 In Process (Protonix) 10:00 Admit ADMIT 04/13/25 Transmitted 11:21 Allergies SHINE 04/13/25 In Process 11:21 Code Status CODE 04/13/25 Transmitted 11:21 Sodium Chloride 0.9% PHA 04/13/25 In Process 11:30 Ondansetron Hcl PHA 04/13/25 In Process (Zofran) 11:30 Docusate Sodium PHA 04/13/25 In Process Capsule (Colace 11:30 Enoxaparin Sodium PHA 04/14/25 In Process (Lovenox) 10:00 Complete Blood Count LAB 04/14/25 Verified 04:00 Comprehensive LAB 04/14/25 Verified Metabolic Panel 04:00 Condition: Stable SHINE 04/13/25 In Process 11:21 Clear Liq Diet DIET 04/13/25 Transmitted Lunch BRP SHINE 04/13/25 In Process 11:21 Sequential SHINE 04/13/25 In Process Compression Device Nitroglycerin PHA 04/13/25 In Process Sublingual (Ntrostat 11:30 Stat Ekg For Chest SHINE 04/13/25 In Process Pain 11:21 Notify Md Of Changes SHINE 04/13/25 In Process From Base 11:21 Comp Field Case Manager For SHINE 04/13/25 In Process 24 Hours 11:21 Emergency Dysrhythmia SHINE 04/13/25 In Process Protocol 11:21 Rhythm Strips Once SHINE 04/13/25 In Process Every Shift 11:21 Oxygen By Nasal RT 04/13/25 Transmitted Cannula 11:21 Hydromorphone PHA 04/13/25 In Process Injection (Dilaudid 11:45 Hydromorphone PHA 04/13/25 In Process Injection (Dilaudid 11:45 Date of Service: Apr 13, 2025 Billing Provider: THANH HIGGINS DNP Common Visit Codes: [id number] INP/OBS CARE (HIGH) THANH HIGGINS [facility] Apr 13, 2025 18:11
[2025-04-13 19:30] VITALS: PULSE 87; RESP 18; O2SAT 97
[2025-04-13] MEDS: ACETAMINOPHEN 325 MG TAB PO ONE (20:08)
[2025-04-13] MEDS: DICYCLOMINE HCL 10 MG CAP PO SCH (20:09)
[2025-04-13] MEDS: DICYCLOMINE HCL 10 MG CAP ONE (21:15)
[2025-04-14 05:42] LABS: Hematocrit 38.3 % (36.0-46.0); Hemoglobin 12.8 g/dL (12.2-16.2); Mean Corpuscular Hemoglobin 29.5 pg (28.0-32.0); Mean Corpuscular Volume 88.3 fL (80.0-100.0); Nucleated Red Blood Cells % 0.1 %
[2025-04-14 06:02] LABS: Alanine Aminotransferase 18 U/L (7-40); Alkaline Phosphatase 68 U/L (46-116); Anion Gap 8 (5-15); Carbon Dioxide 24 mmol/L (20-31); Potassium 4.0 mmol/L (3.5-5.1); Sodium 144 mmol/L (136-145)
[2025-04-14 06:03] LABS: BUN/Creatinine Ratio 14.7 (10.0-20.0); Blood Urea Nitrogen 15 mg/dL (9-23); Glucose 91 mg/dL (74-106)
[2025-04-14 06:04] LABS: Chloride 112 mmol/L (98-107)
[2025-04-14 06:05] LABS: Albumin 3.5 g/dL (3.2-4.8); Bilirubin, Total 0.5 mg/dL (0.2-1.0); Calcium 8.2 mg/dL (8.7-10.4); Total Protein 5.6 g/dL (5.7-8.2)
[2025-04-14] MEDS: ONDANSETRON HCL 4 MG/2 ML VIAL IV PRN (06:05)
[2025-04-14] MEDS: ONDANSETRON HCL 4 MG/2 ML VIAL ONE (06:07)
[2025-04-14 07:30] VITALS: PULSE 88; RESP 17; O2SAT 92
[2025-04-14] MEDS: PANTOPRAZOLE 40 MG/10 ML VIAL INJ IV SCH (10:52)
[2025-04-14] MEDS: ENOXAPARIN SOD 40 MG/0.4 ML SYRINGE SC SCH (10:53)
[2025-04-14] MEDS: PANTOPRAZOLE 40 MG/10 ML VIAL INJ IV ONE (11:18)
[2025-04-14] MEDS: ENOXAPARIN SOD 40 MG/0.4 ML SYRINGE SC ONE (11:18)
[2025-04-14] MEDS: DICYCLOMINE HCL 10 MG CAP ONE ×3 (12:24→21:02)
--- NOTE | 2025-04-14 14:33 | DVHPN2 ---
Subjective 65 year old female with h/o COPD comes with nausea and diarrhea and fever and chills Changes from previous H/P or p: Changes Eyes: No Pain, No Vision change, No Conjunctivae inflammation, No Eyelid inflammation, No Other, No Redness ENT: No Ear pain, No Ear discharge, No Nose pain, No Nose discharge, No Nose congestion, No Mouth pain, No Mouth swelling, No Throat pain, No Throat swelling, No Other Cardiovascular: No Chest Pain, No Palpitations, No Orthopnea, No Paroxysmal Noc. Dyspnea, No Edema, No Lt Headedness, No Other Respiratory: No Cough, No Dry, No Shortness of breath, No SOB with excertion, No Wheezing, No Hemoptysis, No Pleuritic Pain, No Sputum, No Other Gastrointestinal: Nausea, Vomiting, Abdominal Pain; No Diarrhea, No Constipation, No Melena, No Hematochezia, No Other Genitourinary: No Dysuria, No Frequency, No Incontinence, No Hematuria, No Retention, No Other Musculoskeletal: No other, No neck pain, No shoulder pain, No arm pain, No back pain, No hand pain, No leg pain, No foot pain Skin: No Rash, No Lesions, No Jaundice, No Bruising, No Other Objective Vitals Vital Signs Date Time Temp Pulse Resp B/P (MAP) Pulse Ox O2 Delivery O2 Flow Rate FiO2 04/14/25 13:48 100.2 76 20 107/57 (74) 99 100.2 04/14/25 07:30 Room Air* 0 21 Intake/Output Intake and Output 04/14/25 07:00 Intake Total 380 ml Balance 380 ml Intake IV Total 380 ml General Appearance: Alert, Oriented X3, Cooperative Lungs: Clear to auscultation, Normal air movement Cardiovascular: Regular rate, Normal S1, Normal S2, No murmurs Abdomen: Normal bowel sounds, Soft, No tenderness Extremities: No edema Medications Current Medications Medications Dose Ordered Sig/Lucius Route Start Time Stop Time Status Last Admin Dose Admin Ceftriaxone Sodium 50 ml @ 100 mls/hr DAILY@09 IV 04/14/25 09:00 04/14/25 09:34 100 MLS/HR Metronidazole 100 ml @ 100 mls/hr Q8HR IV 04/13/25 22:00 04/14/25 06:06 100 MLS/HR Dicyclomine HCl 20 mg QID PO 04/13/25 18:00 04/14/25 12:21 20 MG Pantoprazole Sodium 40 mg DAILY IV 04/14/25 10:00 04/14/25 10:52 40 MG Sodium Chloride 1,000 ml @ 70 mls/hr [id number] IV 04/13/25 11:30 04/14/25 01:41 70 MLS/HR Ondansetron HCl 4 mg Q4HP PRN IV 04/13/25 11:30 04/14/25 06:05 4 MG Docusate Sodium 100 mg BIDPRN PRN PO 04/13/25 11:30 Enoxaparin Sodium 40 mg DAILY SC 04/14/25 10:00 04/14/25 10:53 40 MG Nitroglycerin 0.4 mg Q5MINP PRN SL 04/13/25 11:30 Hydromorphone HCl 0.25 mg Q4HPRN PRN IV 04/13/25 11:45 Hydromorphone HCl 0.5 mg Q4HPRN PRN IV 04/13/25 11:45 Laboratory Results Laboratory Tests 04/14/25 05:18 Chemistry Test 04/14/25 05:18 Albumin 3.5 g/dL (3.2-4.8) Calcium Level 8.2 mg/dL (8.7-10.4) L Total Protein 5.6 g/dL (5.7-8.2) L LFT Test 04/14/25 05:18 Alanine Aminotransferase (ALT) 18 U/L (7-40) Alkaline Phosphatase 68 U/L (46-116) Aspartate Amino Transferase (AST) 24 U/L (13-40) Total Bilirubin 0.5 mg/dL (0.2-1.0) Urinalysis Test 04/13/25 09:16 Urine Color Light-yellow (Yellow) Urine Clarity Hazy (Clear) H Urine pH 5.5 (5.0-9.0) Urine Specific [place] 1.008 (1.001-1.035) Urine Protein Trace (Negative) H Urine Ketones Negative (Negative) Urine Blood Negative /uL (Negative) Urine Nitrite Negative (Negative) Urine Bilirubin Negative (Negative) Urine Urobilinogen Normal mg/dL (Negative) Urine Leukocyte Esterase 1+ /uL (Negative) Urine RBC 15 /hpf (0 - 4) Urine Microscopic WBC 38 /HPF (0-5) H Urine Squamous Epithelial Cells Few /hpf (<5) Urine Bacteria Few /hpf (None Seen) H Urine Hyaline Casts Few /lpf (0 - 2) Urine Glucose Normal mg/dL (Normal) Assessment/Plan Assessment/Plan Acute gastroenteritis Diarrhea AMERICA due to VMN Dehydration Sepsis Fever UTI Rule out C. Diff COPD Chronic respiratory failure PLAN: Enteritis: Clear liquid diet Diarrhea: Check for C. Diff [place]: IV fluids UTI: Rocephin IV, Urine culture COPD: Med Nebs Fever: Check blood cultures, CXR, check Covid and influenza Plan discussed with: Patient Date of Service: Apr 14, 2025 Billing Provider: MICHAEL EM MD Common Visit Codes: NOT BILLABLE MICHAEL EM MD Apr 14, 2025 14:33
[2025-04-14 14:46] VITALS: BP 107/57; PULSE 83; RESP 23; O2SAT 97
--- NOTE | 2025-04-14 15:20 | DVH ---
CHEST RADIOGRAPH INDICATION: fever TECHNIQUE: Single frontal view of the chest was obtained COMPARISON: XY CHEST PORTABLE on DOS: 01/05/25, XY CHEST PORTABLE on DOS: 10/26/22, XY CHEST PORTABLE on DOS: 10/10/22, XY CHEST PORTABLE on DOS: 10/05/22 FINDINGS: Lines and Tubes: None Lungs: Bibasilar atelectasis, left greater than right. Pleura: No effusion. No pneumothorax. Cardiomediastinal contours: Unremarkable Bones: Unremarkable IMPRESSION: 1. Bibasilar atelectasis, left greater than right.
[2025-04-14] MEDS: ACETAMINOPHEN 325 MG TAB PO PRN (16:51)
[2025-04-14 18:07] VITALS: BP 105/72; PULSE 71; RESP 18; TEMP 99.1; O2SAT 93
[2025-04-14 19:01] VITALS: O2SAT 94
[2025-04-14 21:00] VITALS: BP 117/73; PULSE 74; RESP 16; TEMP 97.8; O2SAT 93
[2025-04-14] MEDS: metroNIDAZOLE 500MG/100ML 200 ML IV ONE (21:00)
[2025-04-14 22:17] LABS: COVID19 ANTIGEN SOFIA FIA NEGATIVE (NEGATIVE)
[2025-04-15] VITALS (11 sets, daily range): BP systolic 111–149; BP diastolic 6–85; PULSE 57–78; RESP 14–18; TEMP 98.2–98.9; O2SAT 93–100
[2025-04-15 05:50] LABS: Hematocrit 36.1 % (36.0-46.0); Hemoglobin 12.0 g/dL (12.2-16.2); Mean Corpuscular Hemoglobin 29.4 pg (28.0-32.0); Mean Corpuscular Volume 88.0 fL (80.0-100.0); Nucleated Red Blood Cells % 0.0 %
[2025-04-15 06:05] LABS: Alanine Aminotransferase 16 U/L (7-40); Albumin 3.4 g/dL (3.2-4.8); Alkaline Phosphatase 62 U/L (46-116); Anion Gap 10 (5-15); BUN/Creatinine Ratio 11.1 (10.0-20.0); Bilirubin, Total 0.5 mg/dL (0.2-1.0); Blood Urea Nitrogen 10 mg/dL (9-23); Carbon Dioxide 23 mmol/L (20-31); Magnesium 1.7 mg/dL (1.6-2.6); Potassium 3.9 mmol/L (3.5-5.1); Sodium 143 mmol/L (136-145)
[2025-04-15 06:08] LABS: Calcium 8.4 mg/dL (8.7-10.4); Chloride 110 mmol/L (98-107); Glucose 68 mg/dL (74-106); Total Protein 5.4 g/dL (5.7-8.2)
[2025-04-15] MEDS: ONDANSETRON HCL 4 MG/2 ML VIAL ONE (06:15)
[2025-04-15] MEDS: DICYCLOMINE HCL 10 MG CAP PO SCH (06:32)
[2025-04-15] MEDS: IPRATROPIUM BROM 0.5 MG/2.5ML INH SOL NEB PRN (10:24)
[2025-04-15] MEDS: ALBUTEROL SULF 2.5 MG/0.5ML(0.5%) NEB SOLN NEB PRN (10:24)
--- NOTE | 2025-04-15 13:40 | DVHPN2 ---
Subjective She is feeling better No fever Diarrhea has resolved and she was not able to send the stool specimen for C diff Creatinine is normal now Changes from previous H/P or p: Changes Eyes: No Pain, No Vision change, No Conjunctivae inflammation, No Eyelid inflammation, No Other, No Redness ENT: No Ear pain, No Ear discharge, No Nose pain, No Nose discharge, No Nose congestion, No Mouth pain, No Mouth swelling, No Throat pain, No Throat swelling, No Other Cardiovascular: No Chest Pain, No Palpitations, No Orthopnea, No Paroxysmal Noc. Dyspnea, No Edema, No Lt Headedness, No Other Respiratory: No Cough, No Dry, No Shortness of breath, No SOB with excertion, No Wheezing, No Hemoptysis, No Pleuritic Pain, No Sputum, No Other Gastrointestinal: Nausea, Vomiting, Abdominal Pain; No Diarrhea, No Constipation, No Melena, No Hematochezia, No Other Genitourinary: No Dysuria, No Frequency, No Incontinence, No Hematuria, No Retention, No Other Musculoskeletal: No other, No neck pain, No shoulder pain, No arm pain, No back pain, No hand pain, No leg pain, No foot pain Skin: No Rash, No Lesions, No Jaundice, No Bruising, No Other Objective Vitals Vital Signs Date Time Temp Pulse Resp B/P (MAP) Pulse Ox O2 Delivery O2 Flow Rate FiO2 04/15/25 13:00 98.3 75 16 112/57 (75) 98 98.3 04/15/25 10:24 Room Air* 0 21 Intake/Output Intake and Output 04/15/25 07:00 Intake Total 1320 ml Balance 1320 ml Intake Oral 240 ml IV Total 1080 ml # Voids 4 # Bowel Movements 2 General Appearance: Alert, Oriented X3, Cooperative Lungs: Clear to auscultation, Normal air movement Cardiovascular: Regular rate, Normal S1, Normal S2, No murmurs Abdomen: Normal bowel sounds, Soft, No tenderness Extremities: No edema Medications Current Medications Medications Dose Ordered Sig/Lucius Route Start Time Stop Time Status Last Admin Dose Admin Ceftriaxone Sodium 50 ml @ 100 mls/hr DAILY@09 IV 04/14/25 09:00 04/15/25 09:46 100 MLS/HR Metronidazole 100 ml @ 100 mls/hr Q8HR IV 04/13/25 22:00 04/15/25 05:00 100 MLS/HR Pantoprazole Sodium 40 mg DAILY IV 04/14/25 10:00 04/15/25 09:46 40 MG Sodium Chloride 1,000 ml @ 70 mls/hr [id number] IV 04/13/25 11:30 04/15/25 12:30 70 MLS/HR Ondansetron HCl 4 mg Q4HP PRN IV 04/13/25 11:30 04/15/25 06:23 4 MG Docusate Sodium 100 mg BIDPRN PRN PO 04/13/25 11:30 Enoxaparin Sodium 40 mg DAILY SC 04/14/25 10:00 04/15/25 09:46 40 MG Nitroglycerin 0.4 mg Q5MINP PRN SL 04/13/25 11:30 Hydromorphone HCl 0.25 mg Q4HPRN PRN IV 04/13/25 11:45 Hydromorphone HCl 0.5 mg Q4HPRN PRN IV 04/13/25 11:45 Albuterol 2.5 mg Q4HPRN PRN NEB 04/14/25 14:30 04/15/25 10:24 2.5 MG Ipratropium [place] 0.5 mg Q4HPRN PRN NEB 04/14/25 14:30 04/15/25 10:24 0.5 MG Acetaminophen 650 mg Q6HP PRN PO 04/14/25 14:45 04/14/25 16:51 650 MG Dicyclomine HCl 20 mg QID PO 04/15/25 06:30 04/15/25 12:22 20 MG Laboratory Results Laboratory Tests 04/15/25 05:16 Chemistry Test 04/15/25 05:16 Albumin 3.4 g/dL (3.2-4.8) Calcium Level 8.4 mg/dL (8.7-10.4) L Magnesium Level 1.7 mg/dL (1.6-2.6) Total Protein 5.4 g/dL (5.7-8.2) L LFT Test 04/15/25 05:16 Alanine Aminotransferase (ALT) 16 U/L (7-40) Alkaline Phosphatase 62 U/L (46-116) Aspartate Amino Transferase (AST) 25 U/L (13-40) Total Bilirubin 0.5 mg/dL (0.2-1.0) Urinalysis Test 04/13/25 09:16 Urine Color Light-yellow (Yellow) Urine Clarity Hazy (Clear) H Urine pH 5.5 (5.0-9.0) Urine Specific [place] 1.008 (1.001-1.035) Urine Protein Trace (Negative) H Urine Ketones Negative (Negative) Urine Blood Negative /uL (Negative) Urine Nitrite Negative (Negative) Urine Bilirubin Negative (Negative) Urine Urobilinogen Normal mg/dL (Negative) Urine Leukocyte Esterase 1+ /uL (Negative) Urine RBC 15 /hpf (0 - 4) Urine Microscopic WBC 38 /HPF (0-5) H Urine Squamous Epithelial Cells Few /hpf (<5) Urine Bacteria Few /hpf (None Seen) H Urine Hyaline Casts Few /lpf (0 - 2) Urine Glucose Normal mg/dL (Normal) Microbiology Microbiology Date/Time Source Procedure Growth Status 04/14/25 21:20 Nose MRSA Screen - Final Complete Assessment/Plan Assessment/Plan Acute gastroenteritis Diarrhea AMERICA due to VMN Dehydration Sepsis Fever UTI Rule out C. Diff COPD Chronic respiratory failure PLAN: Enteritis: Clear liquid diet Diarrhea: Check for C. Diff [place]: IV fluids UTI: Rocephin IV, Urine culture COPD: Med Nebs Fever: Check blood cultures, CXR, check Covid and influenza 04/15/2025: Diarrhea is resolved Unable to check for C diff anymore [place] has resolved with IV fluids UTI continue Rocephin Fever is resolved Blood and urine culture is still pending Continue IV fluids and IV Rocephin for 1 day in the hospital Monitor closely Plan discussed with: Patient My Orders Orders - MICHAEL EM MD Procedure Category Date Status Time Blood Culture DELLA 04/14/25 In Process 14:25 Albuterol Medneb PHA 04/14/25 In Process (Ventolin Medneb) 14:30 Ipratropium Medneb PHA 04/14/25 In Process (Atrovent Medneb) 14:30 Urine Bacterial DELLA 04/14/25 Logged Culture 14:29 Acetaminophen Tablet PHA 04/14/25 In Process (Tylenol Tablet) 14:45 Chest Portable XY 04/14/25 Resulted 14:32 Cssrs Frequent SHINE 04/14/25 In Process Screener (Daily 18:37 * Machining Department Supervisor CONS 04/14/25 Transmitted Consult Date of Service: Apr 15, 2025 Billing Provider: MICHAEL EM MD Common Visit Codes: NOT BILLABLE MICHAEL EM MD Apr 15, 2025 13:40
[2025-04-15] MEDS: MELATONIN 5 MG TAB PO PRN (23:37)
[2025-04-16] VITALS (8 sets, daily range): BP systolic 123–135; BP diastolic 76–82; PULSE 48–64; RESP 16–18; TEMP 36.7; O2SAT 95–98
[2025-04-16 05:48] LABS: Anion Gap 7 (5-15); Carbon Dioxide 28 mmol/L (20-31); Potassium 3.8 mmol/L (3.5-5.1); Sodium 143 mmol/L (136-145)
[2025-04-16 05:54] LABS: BUN/Creatinine Ratio 8.2 (10.0-20.0); Glucose 81 mg/dL (74-106); Magnesium 1.8 mg/dL (1.6-2.6)
[2025-04-16 05:55] LABS: Blood Urea Nitrogen 7 mg/dL (9-23); Calcium 8.6 mg/dL (8.7-10.4); Chloride 108 mmol/L (98-107)
[2025-04-16] MEDS ORDERED: CIPR-273 PO (10:48)
--- NOTE | 2025-04-16 15:37 | DVHDS2 ---
Discharge Summary Date of Admission Apr 13, 2025 at 11:21 Date of Discharge: Apr 16, 2025 Labs/Diagnostic Data: Laboratory Results Test 04/16/25 05:08 04/15/25 05:16 04/14/25 21:20 04/13/25 18:13 Sodium Level 143 mmol/L (136-145) Potassium Level 3.8 mmol/L (3.5-5.1) Chloride Level 108 mmol/L (98-107) Carbon Dioxide Level 28 mmol/L (20-31) Anion Gap 7 (5-15) Blood Urea Nitrogen 7 mg/dL (9-23) Creatinine 0.85 mg/dL (0.550-1.02) Glomerular Filtration Rate Calc 75 mL/min (>90) BUN/Creatinine Ratio 8.2 (10.0-20.0) Serum Glucose 81 mg/dL (74-106) Calcium Level 8.6 mg/dL (8.7-10.4) Magnesium Level 1.8 mg/dL (1.6-2.6) White Blood Count 6.4 10^3/uL (4.4-10.8) Red Blood Count 4.10 10^6/uL (4.0-5.20) Hemoglobin 12.0 g/dL (12.2-16.2) Hematocrit 36.1 % (36.0-46.0) Mean Corpuscular Volume 88.0 fL (80.0-100.0) Mean Corpuscular Hemoglobin 29.4 pg (28.0-32.0) Mean Corpuscular Hemoglobin Concent 33.4 g/dL (32.0-36.0) Red Cell Distribution Width 13.8 % (11.8-14.3) Platelet Count 177 10^3/uL (140-450) Mean Platelet Volume 7.3 fL (6.9-10.8) Neutrophils (%) (Auto) 64.1 % (37.0-80.0) Lymphocytes (%) (Auto) 22.9 % (10.0-50.0) Monocytes (%) (Auto) 9.4 % (0.0-12.0) Eosinophils (%) (Auto) 2.9 % (0.0-7.0) Basophils (%) (Auto) 0.7 % (0.0-2.0) Neutrophils # (Auto) 4.1 10 ^3/uL (1.6-8.6) Lymphocytes # (Auto) 1.5 10 ^3/uL (0.4-5.4) Monocytes # (Auto) 0.6 10 ^3/uL (0-1.3) Eosinophils # (Auto) 0.2 10 ^3/uL (0-0.8) Basophils # (Auto) 0 10 ^3/uL (0-0.2) Nucleated Red Blood Cells 0.0 % Total Bilirubin 0.5 mg/dL (0.2-1.0) Aspartate Amino Transferase (AST) 25 U/L (13-40) Alanine Aminotransferase (ALT) 16 U/L (7-40) Alkaline Phosphatase 62 U/L (46-116) Total Protein 5.4 g/dL (5.7-8.2) Albumin 3.4 g/dL (3.2-4.8) Influenza Type A Antigen Negative (Negative) Influenza Type B Antigen Negative (Negative) SARS-CoV-2 Antigen (Rapid) Negative (NEGATIVE) Lactic Acid Level 0.8 mmol/L (0.4-2.0) Test 04/13/25 09:16 04/13/25 05:09 Urine Color Light-yellow (Yellow) Urine Clarity Hazy (Clear) Urine pH 5.5 (5.0-9.0) Urine Specific [place] 1.008 (1.001-1.035) Urine Protein Trace (Negative) Urine Ketones Negative (Negative) Urine Blood Negative /uL (Negative) Urine Nitrite Negative (Negative) Urine Bilirubin Negative (Negative) Urine Urobilinogen Normal mg/dL (Negative) Urine Leukocyte Esterase 1+ /uL (Negative) Urine RBC 15 /hpf (0 - 4) Urine Microscopic WBC 38 /HPF (0-5) Urine Squamous Epithelial Cells Few /hpf (<5) Urine Bacteria Few /hpf (None Seen) Urine Hyaline Casts Few /lpf (0 - 2) Urine Glucose Normal mg/dL (Normal) Lipase 27 U/L (12-53) Other Laboratory Tests 04/16/25 05:08 04/15/25 05:16 Brief Hx & Hospital Course: Final diagnoses: UTI Acute gastroenteritis, resolved Diarrhea, resolved [place] due to VMN, resolved Dehydration Sepsis C. Diff was ruled out COPD Chronic respiratory failure 65-year-old female who was admitted for abdominal pain and diarrhea She was suspected of having C diff colitis and the order for stool specimen to be checked for C diff was ordered however her diarrhea resolved quickly She had [place] due to vasomotor nephropathy and the IV fluids corrected that The kidney function is normal today Her fever has resolved also Blood cultures were done were negative MRSA screen was negative She is asymptomatic with a day and therefore she was discharged home on Cipro for 5 days Follow up with the primary care physician as soon as possible Condition at Discharge: Stable Final Diagnosis/Problems List UTI Acute gastroenteritis, resolved Diarrhea, resolved [place] due to VMN, resolved Dehydration Sepsis C. Diff was ruled out COPD Chronic respiratory failure Discharge Disposition: Home SNF Discharge Will this Physician continue t: No Discharge Instruct/Medications Diet: Cardiac 2g Na,low cholest Activity: No Restrictions, As Tolerated Follow Up/Referral: PCP [facility] Medications: Cipro 250 mg bid x 5 days Scheduled Ciprofloxacin Hcl (Cipro), 250 MG PO BID Miscellaneous Medications Albuterol Sulfate (Albuterol), 4 MG PO, (Reported) Fluticasone Furoate-Vilanterol (Fluticasone Furoate/Vilan 200-25 Mcg/Act), 1 INH IN, (Reported) Discontinued Medications Azithromycin (Azithromycin), 1 TAB PO DAILY Levofloxacin Hemihydrate (Levofloxacin), 500 MG PO DAILY Methylprednisolone (Medrol Dosepak), 4 MG PO UD Discharge Statement: "Patient was advised to return to the ER or call 911 if any headaches, dizziness, shortness of breath, chest pain, abdominal pain, bleeding, fevers, or worsening of medical condition. Patient was counseled about treatment plan, medications, possible side effects, patientverbalized understanding. All questions were answered to the best of my ability. This discharge took greater then 30 minutes in planning, reviewing documentation, counseling the patient, and discussing with other team members." ASSESSMENT ASSESSMENT Assessment UTI Acute gastroenteritis, resolved Diarrhea, resolved [place] due to VMN, resolved Dehydration Sepsis C. Diff was ruled out COPD Chronic respiratory failure Date of Service: Apr 16, 2025 Billing Provider: MICHAEL EM MD Common Visit Codes: NOT BILLABLE MICHAEL EM MD Apr 16, 2025 15:37
== END 2025-04-16 12:30 | disposition home or self-care (01) | DRG 871 ==
LOC: ER 04:21 → EDBD 04:21 → OVERFLOW 11:21 → EAST 04-14 17:25
PROVIDERS: ADMIT Internal Medicine Geriatric Medicine; ATTEND Internal Medicine Geriatric Medicine
DX: A41.9 Sepsis, unspecified organism (principal); N17.0 Acute kidney failure with tubular necrosis; J96.10 Chronic respiratory failure, unspecified whether with hypoxia or hypercapnia; N39.0 Urinary tract infection, site not specified; B96.89 Other specified bacterial agents as the cause of diseases classified elsewhere; J44.9 Chronic obstructive pulmonary disease, unspecified; K52.9 Noninfective gastroenteritis and colitis, unspecified; E86.0 Dehydration; Z20.822 Contact with and (suspected) exposure to COVID-19; F17.200 Nicotine dependence, unspecified, uncomplicated; K59.00 Constipation, unspecified; Z87.442 Personal history of urinary calculi; Z88.5 Allergy status to narcotic agent; Z90.710 Acquired absence of both cervix and uterus; Z88.2 Allergy status to sulfonamides; Z98.51 Tubal ligation status
CPT/HCPCS: 36415; 71045; 74177; 80048; 80053; 81001; 83605; 83690; 83735; 85025; 87040; 87081; 87426; 87804; 94640; 96361; 96374; 96375; G0378; J2405; J2470; J3490